=== PATIENT | female | born 1990 | race Caucasian/White ===

== ENCOUNTER 2017-09-11 19:42 | Emergency (ER) | payer OTHER ==
[2017-09-11 19:57] VITALS: BP 118/67; PULSE 100; TEMP 98; BMI 19.1
[2017-09-11] MEDS ORDERED: predniSONE 20 MG TABLET (UD) PO ONE (20:40)
--- NOTE | 2017-09-11 20:40 | PDOC ---
History of Present Illness - General Chief Complaint: Bite Stated Complaint: BITE WOUND Time Seen by Provider: 09/11/17 19:59 History Source: Patient Exam Limitations: No Limitations - History of Present Illness Initial Comments: 09/11/17 20:35 27-year-old woman without significant past medical history who presents emergency Department with erythema to right elbow and right ankle. Patient states she was riding her bicycle along the [place] in [place] yesterday and noticed she had some insect bites in the areas of erythema last night prior to going to bed. Patient woke up today went to work and noticed at the end of her shift that she had increased swelling to both areas and had minor pain in her right ankle. She denies fevers, chills. Past History - Past Medical History Allergies/Adverse Reactions: Allergies Allergy/AdvReac Type Severity Reaction Status Date / Time shellfish derived Allergy Verified 09/11/17 20:02 Home Medications: Ambulatory Orders predniSONE [Deltasone -] 40 mg PO DAILY #4 tablet 09/11/17 - Immunization History Immunization Up to Date: Yes - Suicide/Smoking/Psychosocial Hx Smoking Status: No Smoking History: Never smoked Have you smoked in the past 12 months: No Number of Cigarettes Smoked Daily: 0 Information on smoking cessation initiated: No Hx Alcohol Use: No Drug/Substance Use Hx: No Review of Systems - Review of Systems Able to Perform ROS?: Yes Is the patient limited Swedish proficient: No Constitutional: No: Symptoms Reported HEENTM: No: Symptoms Reported Respiratory: No: Symptoms reported Cardiac (ROS): No: Symptoms Reported ABD/GI: No: Symptoms Reported : No: Symptoms Reported Musculoskeletal: No: Symptoms Reported Integumentary: Yes: See HPI Neurological: No: Symptoms reported Endocrine: No: Symptoms Reported Hematologic/Lymphatic: No: Symptoms Reported *Physical Exam - Vital Signs Last Vital Signs Temp Pulse Resp BP Pulse Ox 98.0 F 100 H 16 118/67 100 09/11/17 19:54 09/11/17 19:54 09/11/17 19:54 09/11/17 19:54 09/11/17 19:54 - Physical Exam General Appearance: Yes: Appropriately Dressed. No: Apparent Distress Respiratory/Chest: positive: Lungs Clear, Normal Breath Sounds. negative: Respiratory Distress, Accessory Muscle Use Vascular Pulses: Dorsalis-Pedis (R): 2+, Doralis-Pedis (L): 2+ Integumentary: positive: Dry, Warm, Erythema (right elbow over the lateral epicondyle. Dorsum of right foot extending to the lateral malleolus) Medical Decision Making - Medical Decision Making 09/11/17 20:39 A/P: 27-year-old female without significant past medical history with erythematous reaction to insect bite sustained yesterday Erythema present to the right elbow immediately over the lateral epicondyle Erythema noted to the dorsum of the right foot extending to the lateral malleolus No streaking present Exam is consistent with histamine reaction to insect bites Hydrazone cream, OTC Benadryl, prednisone *DC/Admit/Observation/Transfer Diagnosis at time of Disposition: Insect bite Qualifiers: Encounter type: initial encounter Qualified Code(s): W57.XXXA - Bitten or stung by nonvenomous insect and other nonvenomous arthropods, initial encounter - Discharge Dispostion Disposition: HOME Condition at time of disposition: Stable Decision to Admit order: No - Prescriptions Prescriptions: predniSONE [Deltasone -] 40 mg PO DAILY #4 tablet - Referrals - Patient Instructions Printed Discharge Instructions: How to Care for an Insect Bite or Sting Additional Instructions: Take prednisone 40 mg once a day for the next 4 days Take Benadryl as directed by [employer]'s instructions as needed for itching. Apply hydrocortisone ointment to areas 3 times a day as needed Any visit to an emergency department is incomplete. Please follow-up with your primary doctor within the next week. Return to emergency department for any new or worsening symptoms including fever , red streaks or any other concerns. - Post Discharge Activity
[2017-09-11] MEDS ORDERED: predniSONE 20 MG TABLET (UD) ONE (20:41)
== END 2017-09-11 20:53 | disposition home or self-care (01) ==
LOC: JERFT 19:42
DX: S50.361A Insect bite (nonvenomous) of right elbow, initial encounter (principal); S90.561A Insect bite (nonvenomous), right ankle, initial encounter; W57.XXXA Bitten or stung by nonvenomous insect and other nonvenomous arthropods, initial encounter; Y93.55 Activity, bike riding; Y92.89 Other specified places as the place of occurrence of the external cause; Z91.013 Allergy to seafood
CPT/HCPCS: 99281-25